=== PATIENT | male | born 1995 | race Caucasian/White ===

== ENCOUNTER 2017-04-27 05:43 | Emergency (ER) | payer SELFPAY ==
[~2017-04-27] VITALS: Ht 182.9 cm; Wt 120.0 kg
[~2017-04-27 05:43] MED LIST: BACT800T5 PO; CEPH500C3 PO
[2017-04-27 05:44] VITALS: BP 127/61; PULSE 142; RESP 20; TEMP 103.2; O2SAT 96
--- NOTE | 2017-04-27 06:23 | PD ---
HPI Chief Complaint: Cold / Flu Symptoms Time Seen by Provider: 06:09 Travel History International Travel<30 days: No Contact w/Intl Traveler<30days: No Traveled to known affect area: No History of Present Illness HPI 20-year-old male presents to the emergency department by private transportation for 24 hours of fever or chills nausea vomiting diarrhea cough congestion sore throat earache myalgias and arthralgias. Patient has taken a one-time dose of acetaminophen and a one-time dose of ibuprofen at 6 PM last evening. Patient is use VapoRub without symptomatic began symptomatic relief. Patient denies any chronic medical problems. Patient reports "I think I have the flu". Patient denies any other concerns or complaints. PFSH Past Medical History Narrative Medical Morbid obesity dental extraction occasional alcohol use; nursing notes reviewed Medical History: Denies Significant Hx Diminished Hearing: No Past Surgical History Oral Surgery: Yes (WISDOM TEETH) Social History Alcohol Use: Yes (occ) Tobacco Use: No Substance Use: No Allergies-Medications (Allergen,Severity, Reaction): Coded Allergies: Penicillins (Verified Allergy, Unknown, UNKNOWN, 04/27/17) amoxicillin (Unverified Allergy, Unknown, 04/27/17) Reported Meds & Prescriptions Reported Meds & Active Scripts Active Review of Systems Except as stated in HPI: all other systems reviewed are Neg Physical Exam Narrative GENERAL: Well-developed well-nourished male in no acute respiratory distress SKIN: Warm and dry. HEAD: Normocephalic. EYES: No scleral icterus. No injection or drainage. ENT: Mucous membranes dry airway is patent tympanic membranes without redness dullness or loss of landmarks NECK: Supple, trachea midline. No JVD or lymphadenopathy. CARDIOVASCULAR: Increased Regular rate and rhythm without murmurs, gallops, or rubs. RESPIRATORY: Breath sounds equal bilaterally. No accessory muscle use. GASTROINTESTINAL: Abdomen soft, non-tender, nondistended. MUSCULOSKELETAL: No cyanosis, or edema. BACK: Nontender without obvious deformity. No CVA tenderness. Data Data Last Documented VS Vital Signs Date Time Temp Pulse Resp B/P (MAP) Pulse Ox O2 Delivery O2 Flow Rate FiO2 04/27/17 05:44 103.2 142 20 127/61 (83) 96 Room Air Orders Orders Complete Blood Count With Diff (04/27/17 06:18) Comprehensive Metabolic Panel (04/27/17 06:18) Lactic Acid Sepsis Protocol (04/27/17 06:18) Influenzae A/B Antigen (04/27/17 06:18) Urinalysis - C+S If Indicated (04/27/17 06:18) Blood Culture (04/27/17 06:18) Chest, Single Ap (04/27/17 06:18) Iv Access Insert/Monitor (04/27/17 06:18) Oximetry (04/27/17 06:18) Sodium Chloride 0.9% Flush (Ns Flush) (04/27/17 06:30) Sodium Chlor 0.9% 1000 Ml Inj (Ns 1000 M (04/27/17 06:30) Sodium Chlor 0.9% 1000 Ml Inj (Ns 1000 M (04/27/17 06:30) Ceftriaxone Inj (Rocephin Inj) (04/27/17 06:30) Azithromycin Inj (Zithromax Inj) (04/27/17 06:30) Ibuprofen (Motrin) (04/27/17 06:30) Acetaminophen (Tylenol) (04/27/17 06:30) Ondansetron Inj (Zofran Inj) (04/27/17 06:30) Labs Laboratory Tests Test 04/27/17 06:39 White Blood Count 12.3 TH/MM3 Red Blood Count 4.60 MIL/MM3 Hemoglobin 13.4 GM/DL Hematocrit 38.7 % Mean Corpuscular Volume 84.0 FL Mean Corpuscular Hemoglobin 29.2 PG Mean Corpuscular Hemoglobin Concent 34.7 % Red Cell Distribution Width 13.7 % Platelet Count 289 TH/MM3 Mean Platelet Volume 8.2 FL Neutrophils (%) (Auto) 82.1 % Lymphocytes (%) (Auto) 8.3 % Monocytes (%) (Auto) 9.0 % Eosinophils (%) (Auto) 0.2 % Basophils (%) (Auto) 0.4 % Neutrophils # (Auto) 10.1 TH/MM3 Lymphocytes # (Auto) 1.0 TH/MM3 Monocytes # (Auto) 1.1 TH/MM3 Eosinophils # (Auto) 0.0 TH/MM3 Basophils # (Auto) 0.0 TH/MM3 CBC Comment DIFF FINAL Differential Comment MDM Medical Decision Making Medical Screen Exam Complete: Yes Emergency Medical Condition: Yes Medical Record Reviewed: Yes Differential Diagnosis Viral syndrome, influenza, pneumonia, gastroenteritis, dehydration, electronic disturbance, sepsis Narrative Course Patient placed on radiation monitor IV access obtained 2 L normal saline administered 800 mg of ibuprofen administered 1 g of acetaminophen administered 2 g of Rocephin IV piggyback administered times one azithromycin 500 mg IV piggyback administered times one specimens collected and sent resulting including lactic acid and 2 blood cultures influenza antigen and specimen rapid strep specimen and chest x-ray Care signed over to Dr. Garcia at 7 AM Sepsis Criteria SIRS Criteria (2 or more): Temp > 100.9 or < 96.8, Heart rate over 90 Nia Pickard MD Apr 27, 2017 06:23
[2017-04-27] MEDS ORDERED: ACETAMINOPHEN 500 MG CPLT PO ONE (06:30)
[2017-04-27] MEDS ORDERED: cefTRIAXone INJ 2,000 MG in SODIUM CHLORIDE 0.9% INJ 100 ML IV ONE (06:30)
[2017-04-27] MEDS ORDERED: SODIUM CHLORIDE 0.9% FLUSH 10 ML FLUSH IVF PRN (06:30)
[2017-04-27] MEDS ORDERED: ONDANSETRON HCL 4 MG/2 ML VIAL IV PUSH ONE (06:30)
[2017-04-27] MEDS ORDERED: AZITHROMYCIN INJ 500 MG in SODIUM CHLOR 0.9% 250 ML INJ 250 ML IV ONE (06:30)
[2017-04-27] MEDS ORDERED: SODIUM CHLOR 0.9% 1000 ML INJ 1,000 ML IV ONE ×2 (06:30)
[2017-04-27] MEDS ORDERED: IBUPROFEN 800 MG TAB PO ONE (06:30)
--- NOTE | 2017-04-27 06:40 | RADRPT ---
EXAM DATE/TIME: 04/27/2017 06:26 [facility] COMPARISON: No previous studies available for comparison. INDICATIONS : Fever MEDICAL HISTORY : None. SURGICAL HISTORY : None. ENCOUNTER: Initial ACUITY: 1 day PAIN SCORE: 0/10 LOCATION: Bilateral chest FINDINGS: A single view of the chest demonstrates the lungs to be symmetrically aerated without evidence of mas s, infiltrate or effusion. The cardiomediastinal contours are unremarkable. Osseous structures are intact. CONCLUSION: No acute disease. Yordan Alas MD on April 27, 2017 at 6:38 Board Certified Radiologist. This report was verified electronically.
[2017-04-27 07:08] LABS: AUTOMATED NEUTROPHIL # 10.1 TH/MM3 (1.8-7.7); BASOPHIL % 0.4 % (0.0-2.0); EOSINOPHIL % 0.2 % (0.0-4.0); HEMATOCRIT 38.7 % (39.0-51.0); HEMOGLOBIN 13.4 GM/DL (13.0-17.0); LYMPH % 8.3 % (9.0-44.0); MEAN CORPUSCULAR HEMOGLOBIN 29.2 PG (27.0-34.0); MEAN CORPUSCULAR HGB CONC 34.7 % (32.0-36.0); MEAN PLATELET VOLUME 8.2 FL (7.0-11.0); MONOCYTE # 1.1 TH/MM3 (0-0.9); NEUT % 82.1 % (16.0-70.0); PLATELET COUNT 289 TH/MM3 (150-450); RED CELL DISTRIBUTION WIDTH 13.7 % (11.6-17.2); WHITE BLOOD COUNT 12.3 TH/MM3 (4.0-11.0)
[2017-04-27 07:20] LABS: ALBUMIN 3.7 GM/DL (3.4-5.0); ALT (GPT) 88 U/L (12-78); AST (GOT) 43 U/L (15-37); BICARBONATE 23.1 MEQ/L (21.0-32.0); BLOOD UREA NITROGEN 16 MG/DL (7-18); CALCIUM 8.5 MG/DL (8.5-10.1); CHLORIDE 100 MEQ/L (98-107); CREATININE 1.15 MG/DL (0.60-1.30); GLOMERULAR FILTRATION RATE 79 ML/MIN (>89); GLUCOSE,RANDOM 104 MG/DL (74-106); SODIUM (NA) 134 MEQ/L (136-145)
[2017-04-27 07:22] LABS: ALKALINE PHOSPHATASE 97 U/L (45-117); TOTAL BILIRUBIN ADULT 0.4 MG/DL (0.2-1.0); TOTAL PROTEIN 7.8 GM/DL (6.4-8.2)
[2017-04-27] MEDS ORDERED: OSEL75 PO (07:38)
--- NOTE | 2017-04-27 07:38 | PD ---
Data Data Last Documented VS Vital Signs Date Time Temp Pulse Resp B/P (MAP) Pulse Ox O2 Delivery O2 Flow Rate FiO2 04/27/17 05:44 103.2 142 20 127/61 (83) 96 Room Air Orders Orders Complete Blood Count With Diff (04/27/17 06:18) Comprehensive Metabolic Panel (04/27/17 06:18) Lactic Acid Sepsis Protocol (04/27/17 06:18) Influenzae A/B Antigen (04/27/17 06:18) Urinalysis - C+S If Indicated (04/27/17 06:18) Blood Culture (04/27/17 06:18) Chest, Single Ap (04/27/17 06:18) Iv Access Insert/Monitor (04/27/17 06:18) Oximetry (04/27/17 06:18) Sodium Chloride 0.9% Flush (Ns Flush) (04/27/17 06:30) Sodium Chlor 0.9% 1000 Ml Inj (Ns 1000 M (04/27/17 06:30) Sodium Chlor 0.9% 1000 Ml Inj (Ns 1000 M (04/27/17 06:30) Ceftriaxone Inj (Rocephin Inj) (04/27/17 06:30) Azithromycin Inj (Zithromax Inj) (04/27/17 06:30) Ibuprofen (Motrin) (04/27/17 06:30) Acetaminophen (Tylenol) (04/27/17 06:30) Ondansetron Inj (Zofran Inj) (04/27/17 06:30) Ed Discharge Order (04/27/17 07:40) Labs Laboratory Tests Test 04/27/17 06:39 White Blood Count 12.3 TH/MM3 Red Blood Count 4.60 MIL/MM3 Hemoglobin 13.4 GM/DL Hematocrit 38.7 % Mean Corpuscular Volume 84.0 FL Mean Corpuscular Hemoglobin 29.2 PG Mean Corpuscular Hemoglobin Concent 34.7 % Red Cell Distribution Width 13.7 % Platelet Count 289 TH/MM3 Mean Platelet Volume 8.2 FL Neutrophils (%) (Auto) 82.1 % Lymphocytes (%) (Auto) 8.3 % Monocytes (%) (Auto) 9.0 % Eosinophils (%) (Auto) 0.2 % Basophils (%) (Auto) 0.4 % Neutrophils # (Auto) 10.1 TH/MM3 Lymphocytes # (Auto) 1.0 TH/MM3 Monocytes # (Auto) 1.1 TH/MM3 Eosinophils # (Auto) 0.0 TH/MM3 Basophils # (Auto) 0.0 TH/MM3 CBC Comment DIFF FINAL Differential Comment Blood Urea Nitrogen 16 MG/DL Creatinine 1.15 MG/DL Random Glucose 104 MG/DL Total Protein 7.8 GM/DL Albumin 3.7 GM/DL Calcium Level 8.5 MG/DL Alkaline Phosphatase 97 U/L Aspartate Amino Transf (AST/SGOT) 43 U/L Alanine Aminotransferase (ALT/SGPT) 88 U/L Total Bilirubin 0.4 MG/DL Sodium Level 134 MEQ/L Potassium Level 3.7 MEQ/L Chloride Level 100 MEQ/L Carbon Dioxide Level 23.1 MEQ/L Anion Gap 11 MEQ/L Estimat Glomerular Filtration Rate 79 ML/MIN Lactic Acid Level 1.5 mmol/L [facility] Medical Record Reviewed: Yes Supervised Visit with ABIMBOLA: Yes Narrative Course CBC & BMP Diagram 04/27/17 06:39 Total Protein 7.8, Albumin 3.7, Calcium Level 8.5, Alkaline Phosphatase 97, Aspartate Amino Transf (AST/SGOT) 43 H, Alanine Aminotransferase (ALT/SGPT) 88 H , Total Bilirubin 0.[address] Pickard's note. The patient has influenza virus and has been adequately resuscitated here and will be sent home with Tamiflu. Precautions regarding transmission to close contacts discussed.. Diagnosis Primary Impression: Influenza Med/Other Pt SpecificInfo: Prescription(s) given Scripts Oseltamivir (Tamiflu) 75 Mg Cap 75 MG PO BID for Mgmt Viral Infection for 7 Days, #14 CAP 0 Refills Prov: Ridge Garcia MD 04/27/17 Disposition: 01 DISCHARGE HOME Condition: Stable Ridge Garcia MD Apr 27, 2017 07:38
[2017-04-27 08:17] VITALS: BP 107/52
== END 2017-04-27 08:18 | disposition home or self-care (01) ==
LOC: NEPC 05:43
DX: J09.X2 Influenza due to identified novel influenza A virus with other respiratory manifestations (principal); E66.01 Morbid (severe) obesity due to excess calories; Z88.0 Allergy status to penicillin
CPT/HCPCS: 71045; 80053; 83605; 85025; 87040; 87804; 96365; 96368; 96375; 99285; J0456; J0696; J2405; J7030; J7050